=== PATIENT | female | born 1950 | race Caucasian/White ===

== ENCOUNTER 2018-06-02 11:08 | Emergency (ER) | payer OTHER, MEDICARE ==
[2018-06-02 13:02] LABS: PLATELET COUNT 427 10^3/uL (150-400)
--- NOTE | 2018-06-02 14:45 | EDPHY ---
H & P Stated Complaint: HTN Time Seen by Provider: 06/02/18 11:50 HPI/ROS: CHIEF COMPLAINT: High blood pressure HISTORY OF PRESENT ILLNESS: This is a 67 year old female who has been diagnosed with hypertension earlier this year. She was initially prescribed lisinopril, but did not take it regularly. However, she began regularly taking lisinopril 5 mg nightly one week ago. This medication caused a cough and some itching and she stopped taking it yesterday. She was started on Amlodipine 2.5 mg which she began last night. She presents today concerned about high blood pressure readings at home. She is not having headache, confusion, weakness or numbness, visual changes, chest pain, or trouble breathig. REVIEW OF SYSTEMS: A ten system review of systems was performed and is negative with the exception of the items mentioned in the HPI. Past medical history: Hypertension Hypothyroid Past surgical history: Negative Family history: Coronary artery disease--father at age 68, brother at age 52, another brother with CABG at age 59. Social history: She is here with her . They live in [place] in the summer and [place] in the winter. She leads an active lifestyle with regular exercise. General Appearance: Alert. Vital signs reviewed. BP 153/120 at triage. Eyes: Pupils equal and round, no conjunctival injection, no discharge. Anicteric. ENT, Mouth: Mucous membranes are moist, no oropharyngeal erythema or edema. Neck: No lymphadenopathy, supple. Respiratory: Lungs are clear to auscultation; no wheezes, rales, or rhonchi. Cardiovascular: Regular rate and rhythm; no murmur, rub, or gallop. Gastrointestinal: Abdomen is soft and nontender, no masses or organomegaly, bowel sounds normal. Skin: Warm and dry, no rashes on exposed skin, normal color. Back: Nontender to palpation over the thoracolumbar spine. No CVAT. Extremities: No lower extremity edema, no calf tenderness or swelling. Neurological: Alert and oriented. Moving all four extremities easily and equally. Cranial nerves II through XII are examined and are intact (visual acuity not tested). Strength is 5 over 5 bilaterally with testing of all major motor groups. Sensation is intact to light touch over all 4 extremities. Gait is normal. [id number] is performed accurately. Psychiatric: Normal affect. - Personal History Current Tetanus/Diphtheria Vaccine: No Current Tetanus Diphtheria and Acellular Pertussis (TDAP): No - Medical/Surgical History Hx Asthma: No Hx Chronic Respiratory Disease: No Hx Diabetes: No Hx Cardiac Disease: No Hx Renal Disease: No Hx Cirrhosis: No Hx Alcoholism: Yes Hx HIV/AIDS: No Hx Splenectomy or Spleen Trauma: No Other PMH: HTN, hypothyroid, - Social History Smoking Status: Never smoked Constitutional: Initial Vital Signs Temperature (C) 36.5 C 06/02/18 11:17 Heart Rate 81 06/02/18 11:17 Respiratory Rate 16 06/02/18 11:17 Blood Pressure 153/120 H 06/02/18 11:17 O2 Sat (%) 97 06/02/18 11:17 O2 Delivery Mode Room Air Allergies/Adverse Reactions: codeine Allergy (Verified 06/02/18 11:16) lisinopril Allergy (Verified 06/02/18 11:16) Home Medications: Medication Instructions Recorded Aspirin 06/02/18 Levothyroxine 06/02/18 Norvasc 2.5 mg (*) 06/02/18 Progesterone 06/02/18 Medical Decision Making - Diagnostics EKG Interpretation: EKG interpreted in [facility] by ED physician. ED Course/Re-evaluation: Hypertension by history, just started on anti-hypertensive medication and concerned about high blood pressure readings. Evaluationfor end organ damage included EKG (no acute ischemic changes), CBC, chemistries, UA (no proteinuria) , and troponin (normal). She did not receive additional antihypertensive medication in the ED and her blood pressure decreased to 140/70. I provided reassurance, explained that her medication will take some time before her blood pressure normalizes, and encouraged follow up with her PCP. Danger signs reviewed with her. Differential Diagnosis: I considered a differential diagnosis of hypertension that includes but is not limited to essential hypertension, dietary indiscretion, renal artery stenosis or other kidney problems, obstructive sleep apnea, adrenal gland tumor, thyroid problem, stimulants. - Data Points Laboratory Results: Laboratory Results 06/02/18 12:30 06/02/18 12:30 Point of Care Test Results: Chemistry 06/02/18 12:52 POC Troponin I 0.00 ng/mL ng/mL (0.00-0.08) Departure - Departure Disposition: Home, Routine, Self-Care Clinical Impression: Hypertension Qualifiers: Hypertension type: essential hypertension Qualified Code(s): I10 - Essential ( primary) hypertension Condition: Good Instructions: Hypertension (ED) Additional Instructions: Continue to take the Norvasc 2.5 mg nightly. I recommend that you check your blood pressure at home twice daily and record these readings. If you have persistently high blood pressure you should let Dr. Galloway know about it. If you have severe headache, weakness or other stroke system symptoms, chest pain, or difficulty breathing you should return to the emergency department. Her blood pressure now is at an acceptable level. Do not expected to normalize right away. It will take a while for the Norvasc to take effect. I think that you should continue with all of your usual activities. Referrals: MADISON GALLOWAY [Other] - As per Instructions
[2018-06-02 15:03] VITALS: BP 140/70
--- NOTE | 2018-06-02 15:37 | CPEKG ---
Test Reason : OPEN Blood Pressure : / mmHG Vent. Rate : 068 BPM Atrial Rate : 068 BPM P-R Int : 195 ms QRS Dur : 136 ms QT Int : 446 ms P-R-T Axes : 067 -79 030 degrees QTc Int : 475 ms Sinus rhythm RBBB and LAFB Probable left ventricular hypertrophy Confirmed by Sadia Orta ([id number]) on 06/02/2018 3:36:22 PM Referred By: Confirmed By:Sadia Orta
== END 2018-06-02 14:55 | disposition home or self-care (01) ==
DX: I10 Essential (primary) hypertension (principal)
CPT/HCPCS: 84484-PO